=== PATIENT | male | born 1990 | race Caucasian/White ===

== ENCOUNTER 2019-03-03 19:49 | Emergency (ER) | payer OTHER ==
[2019-03-03] MEDS ORDERED: Ketorolac Tromethamine 30 MG/ML VIAL ONE (20:09)
== END 2019-03-03 20:21 | disposition home or self-care (01) ==
LOC: ERS 19:49
DX: M54.41 Lumbago with sciatica, right side (principal); F17.210 Nicotine dependence, cigarettes, uncomplicated
CPT/HCPCS: 96372; 99283; J1885